=== PATIENT | female | born 1955 | race Caucasian/White ===

== ENCOUNTER 2018-01-10 14:14 | Outpatient (CLI) | payer BC | END 2018-01-10 14:15 | disposition home or self-care (01) | LOC: BICMAMMO 14:14 | PROVIDERS: ATTEND Internal Medicine | DX: Z12.31 Encounter for screening mammogram for malignant neoplasm of breast (principal); M85.851 Other specified disorders of bone density and structure, right thigh; M85.852 Other specified disorders of bone density and structure, left thigh | CPT/HCPCS: 77063; 77067; 77080 ==

== ENCOUNTER 2018-01-26 09:33 | Outpatient (CLI) | payer BC | END 2018-01-26 09:34 | disposition home or self-care (01) | LOC: BICMAMMO 09:33 | PROVIDERS: ATTEND Internal Medicine | DX: R92.2 Inconclusive mammogram (principal) | CPT/HCPCS: G0279 ==

== ENCOUNTER → 2018-02-08 | Day surgery (SDC) | payer BC | LOC: MAMMO 07:11 | PROVIDERS: ATTEND Specialist | DX: N63.20 Unspecified lump in the left breast, unspecified quadrant (principal); Z53.9 Procedure and treatment not carried out, unspecified reason; Z88.0 Allergy status to penicillin ==

== ENCOUNTER → 2018-02-21 | Day surgery (SDC) | payer BC | LOC: BICULT 12:53 | PROVIDERS: ATTEND Specialist | PROC: 0HBU3ZX Excision of Left Breast, Percutaneous Approach, Diagnostic (ICD-10-PCS; principal; 2018-02-21) | DX: N63.21 Unspecified lump in the left breast, upper outer quadrant (principal); Z79.899 Other long term (current) drug therapy; Z88.0 Allergy status to penicillin | CPT/HCPCS: 19083; 88305 ==

== ENCOUNTER 2019-06-30 10:50 | Day surgery (SDC) | payer BC ==
[2019-06-29 10:45] VITALS: BMI 26.6
[~2019-06-30 10:50] MED LIST: Dexamethasone 20 MG/5 ML VIAL ONE; Glycopyrrolate 0.4 MG/ 2 ML VIAL ONE; Ketorolac Tromethamine 30 MG/ML VIAL ONE; Lidocaine 1% PF 5 ML VIAL ONE; Ondansetron PF 4 MG/2 ML Vial ONE; PROPOFOL 200 MG/20 ML VIAL ONE; Rocuronium Bromide 10 MG/ML (10ML VIAL) ONE
[2019-06-30 11:25] LABS: #Basophils 0.1 thou/uL (0.0-0.2); #Eosinphils 0.1 thou/uL (0.0-0.7); #Lymphocytes 2.4 thou/uL (1.20-3.40); #Monocytes 0.6 thou/uL (0.11-0.59); #Neutrophils 4.3 thou/uL (1.40-6.50); %Basophils 0.9 % (0.0-1.0); %Eosinophils 1.6 % (0.0-10.0); %Lymphocytes 32.5 % (21.0-51.0); %Monocytes 7.7 % (0.0-10.0); %Neutrophils 57.2 % (42.0-75.0); Hemoglobin 13.4 g/dL (12.0-16.0); Mean Corpuscular HGB CONC 32.9 g/dL (32.0-36.0); Mean Corpuscular Hemoglobin 31.1 pg (27.0-31.0); Mean Corpuscular Volume 94.7 fL (78.0-98.0); Mean Platelet Volume 7.9 fL (7.4-10.4); Platelet Count 216 thou/uL (130-400); RBC Distribution Width 12.1 % (11.5-14.5); Red Blood Cell (RBC) Count 4.31 mill/uL (4.20-5.40); White Blood Cell (WBC) Count 7.5 thou/uL (4.8-10.8)
[2019-06-30 11:47] LABS: Anion Gap 12 mmol/L (10-20); BUN (Urea Nitrogen) 12 mg/dL (9.8-20.1); Calc. Creatinine Clearance 82 mL/min (70-130); Calcium 9.4 mg/dL (7.8-10.44); Carbon Dioxide 29 mmol/L (23-31); Chloride 105 mmol/L (98-107); Estimated GFR-MDRD 74; Glucose 91 mg/dL (80-115); Potassium 4.1 mmol/L (3.5-5.1); Sodium 142 mmol/L (136-145)
[2019-06-30] MEDS ORDERED: Bupivacaine HCl 0.25%/Epi 0.0005/PF 10 ML VIAL FS ONE ×2 (12:12→12:13)
[2019-06-30] MEDS ORDERED: Bacitracin Zinc Ointment 30 gm TUBE ONE (12:12)
[2019-06-30] MEDS ORDERED: Bupivacaine 0.25% HCL 30 ML VIAL ONE (12:22)
[2019-06-30] MEDS ORDERED: Fentanyl 100 MCG/2 ML VIAL ONE ×2 (12:24→13:48)
[2019-06-30] MEDS ORDERED: HYDROcodone/Acetaminophen 5/325 mg Tablet ONE (14:40)
--- NOTE | 2019-07-03 11:41 | EKG ---
Test Reason : PREOP Blood Pressure : / mmHG Vent. Rate : 054 BPM Atrial Rate : 054 BPM P-R Int : 156 ms QRS Dur : 084 ms QT Int : 444 ms P-R-T Axes : 050 056 054 degrees QTc Int : 421 ms Sinus bradycardia Nonspecific T wave abnormality Otherwise normal ECG Confirmed by JAGDEEP KYLE ([id number]) on 07/03/2019 11:41:18 AM Referred By: [place] Confirmed By:JAGDEEP KYLE
--- NOTE | 2019-07-03 15:08 | OP ---
DATE OF PROCEDURE: 06/30/2019 PREOPERATIVE DIAGNOSIS: Varicosity, right nose, symptomatic by bulging and being painful. POSTOPERATIVE DIAGNOSIS: Varicosity, right nose, symptomatic by bulging and being painful. PROCEDURE PERFORMED: Excision of varicosity, right nose. DESCRIPTION OF PROCEDURE: Following induction of adequate anesthesia, the patient was prepped and draped in usual sterile fashion in supine position. A longitudinal incision was made down the nasal sidewall. The large blood vessel was dissected out and tied off proximally and distally prior to being resected. The blood vessels were tied off with 3-0 silk suture. The field was copiously irrigated and then closed with 5-0 Monocryl suture and 5-0 Prolene suture. The patient tolerated the procedure well. Length of closure was 3 cm. Job ID: [id number]
== END 2019-06-30 15:20 | disposition home or self-care (01) ==
LOC: SDC 10:50
PROVIDERS: ATTEND Plastic Surgery
PROC: 05B Upper Veins, Excision (ICD-10-PCS; principal; 2019-06-30)
DX: I86.8 Varicose veins of other specified sites (principal); M19.90 Unspecified osteoarthritis, unspecified site; Z79.82 Long term (current) use of aspirin; Z79.899 Other long term (current) drug therapy; Z88.0 Allergy status to penicillin
CPT/HCPCS: 36415; 80048; 85025; 88305; 93005; 93010; J0690; J1100; J1885; J2001; J2405; J2704; J3010; S0020

== ENCOUNTER 2021-01-20 11:26 | Outpatient (CLI) | payer OTHER | END 2021-01-20 11:27 | disposition home or self-care (01) | LOC: BICMAMMO 11:26 | PROVIDERS: ATTEND Internal Medicine | DX: Z12.31 Encounter for screening mammogram for malignant neoplasm of breast (principal) | CPT/HCPCS: 77063; 77067 ==

== ENCOUNTER 2021-06-25 08:55 | Outpatient (CLI) | payer OTHER | END 2021-06-25 08:56 | disposition home or self-care (01) | LOC: BICMAMMO 08:55 | PROVIDERS: ATTEND Internal Medicine | DX: M85.80 Other specified disorders of bone density and structure, unspecified site (principal); M81.0 Age-related osteoporosis without current pathological fracture; Z78.0 Asymptomatic menopausal state | CPT/HCPCS: 77080 ==

== ENCOUNTER 2024-08-28 12:06 | Outpatient (CLI) | payer OTHER | END 2024-08-28 12:07 | disposition home or self-care (01) | LOC: BICMAMMO 12:06 | PROVIDERS: ATTEND Family Medicine | DX: Z12.31 Encounter for screening mammogram for malignant neoplasm of breast (principal); M81.0 Age-related osteoporosis without current pathological fracture; Z91.89 Other specified personal risk factors, not elsewhere classified; M85.851 Other specified disorders of bone density and structure, right thigh | CPT/HCPCS: 77063; 77067; 77080 ==